=== PATIENT | female | born 1965 | race Two or more races ===

== ENCOUNTER 2024-02-26 08:16 | Outpatient (CLI) | payer OTHER | END 2024-02-26 08:19 | disposition home or self-care (01) | LOC: SONOGRAMA 08:16 | PROVIDERS: ATTEND Pathology Anatomic Pathology & Clinical Pathology | DX: D34 Benign neoplasm of thyroid gland (principal); D44.0 Neoplasm of uncertain behavior of thyroid gland; E07.89 Other specified disorders of thyroid ==

== ENCOUNTER 2024-08-09 14:36 | Outpatient (CLI) | payer OTHER | END 2024-08-09 14:39 | disposition home or self-care (01) | LOC: SONOGRAMA 14:36 | PROVIDERS: ATTEND Pathology Anatomic Pathology | DX: E04.1 Nontoxic single thyroid nodule (principal); D44.0 Neoplasm of uncertain behavior of thyroid gland ==